=== PATIENT | female | born 1965 | race Two or more races ===

== ENCOUNTER 2023-08-29 10:37 | Outpatient (REF) | payer MEDICAID, SELFPAY ==
[2023-08-29 14:56] LABS: MANUAL DIFF FLAG NO
[2023-08-29 15:03] LABS: Basophils Percent Auto 0.4 % (0-2); Eosinophils Absolute Auto 0.1 X10*3/uL (0.0-0.4); Eosinophils Percent Auto 1.4 % (0-4); Hematocrit 41.2 % (37.0-47.0); Hemoglobin 13.5 g/dl (12.0-16.0); Imm Gran Abs Auto 0.02 X10*3/uL (0.00-0.03); Imm Gran Pct Auto 0.3 % (0.0-0.4); Lymphocytes Percent Auto 28.6 % (20-40); Mean Corpuscular HGB Conc 32.8 g/dl (31.0-35.0); Mean Corpuscular Hemoglobin 30.8 pg (27.0-33.0); Mean Corpuscular Volume 93.8 fL (80.0-98.0); Mean Platelet Volume 10.7 fL (9.4-12.3); Monocytes Absolute Auto 0.5 X10*3/uL (0.1-1.2); Monocytes Percent Auto 7.4 % (2-11); Neutrophils Absolute Auto 4.3 x10*3/uL (2.0-8.3); Neutrophils Percent Auto 61.9 % (45-73); Platelet Count 287 X10*3/uL (160-400); Red Blood Count 4.39 X10*6/uL (4.20-5.50); Red Cell Distribution Width 13.6 % (11.0-16.0); White Blood Count 6.9 X10*3/uL (4.8-10.8)
[2023-08-29 15:27] LABS: Estimated Average Glucose 103 mg/dL; Hemoglobin A1c % 5.2 % (<6.0)
[2023-08-29 15:29] LABS: Alanine Aminotransferase 11 U/L (0-31); Albumin Level 4.4 g/dL (3.5-5.0); Alkaline Phosphatase 77 U/L (39-117); Anion Gap 13 (12-20); Aspartate Amino Transferase 16 U/L (5-31); Bilirubin Total 1.4 mg/dL (0.0-1.0); Blood Urea Nitrogen 11 mg/dL (9-16); Calcium 9.5 mg/dL (8.4-10.2); Carbon Dioxide 22 mmol/L (22-29); Chloride 108 mmol/L (96-108); Cholesterol 208 mg/dL (<200); Estimated Glomerular Filt Rate > 60; Glucose Random 120 mg/dL (60-115); HDL Cholesterol 86 mg/dL (>40); LDL Cholesterol Calculated 109 mg/dL (<100); Potassium 4.3 mmol/L (3.3-5.1); Sodium 139 mmol/L (135-145); Total Protein 6.8 g/dL (6.5-8.0); Triglycerides 67 mg/dL (<150)
[2023-08-29 15:45] LABS: TSH reflex Free T4 0.86 uIU/mL (0.32-4.0); Vitamin D 25-OH Total 28.4 ng/mL (>30)
[2023-08-30 04:55] LABS: ~HepC Num1 0.07 S/CO (0.00-0.79); ~Hepatitis C Antibody Nonreactive (Nonreactive)
[2023-09-02 15:18] LABS: HIV RNA PCR Qn Copies Not Detected Copies/mL; HIV RNA PCR Qn Log Copies Not Detected Log cps/mL
== END 2023-08-29 10:38 | disposition home or self-care (01) ==
LOC: HO.CHCLDS 10:37
PROVIDERS: Visit Provider Internal Medicine
DX: Z12.4 Encounter for screening for malignant neoplasm of cervix (principal); Z11.51 Encounter for screening for human papillomavirus (HPV); F41.9 Anxiety disorder, unspecified; E55.9 Vitamin D deficiency, unspecified
CPT/HCPCS: 36415; 80053; 80061; 82306; 83036; 84443; 85025; 86803; 87536; 87624; 87900; 88142

== ENCOUNTER 2024-01-24 11:05 | Outpatient (REF) | payer MEDICAID, SELFPAY ==
--- NOTE | ~2024-01-24 | MM_ITS ---
EXAMINATION: MM SCREENING DIGITAL BREAST TOMOSYNTHESIS, BILATERAL CLINICAL INFORMATION: Screening. Asymptomatic. The patient has a history of bilateral mastopexy. COMPARISON: Mammography: This study is compared with prior exams dating back to 2019. TECHNIQUE: Digital breast tomosynthesis is performed in both the craniocaudal and mediolateral oblique views along with computer-aided detection (CAD). Synthesized 2D images are generated from the tomosynthesis. FINDINGS: The breasts are almost entirely fatty (ACR BI-RADS breast composition Category a). There are no significant masses, abnormal calcifications, or other abnormalities. Postsurgical changes are present in each breast. MM/MM tomosynthesis screening BI IMPRESSION: No mammographic evidence of malignancy. ASSESSMENT: BI-RADS BI-RADS 2 - Benign Findings RECOMMENDATION: Routine annual mammography screening. 1 year F/U This examination should not preclude the clinical evaluation of a suspicious palpable abnormality. This patient's information was entered into a reminder system with a target due date for their next mammogram.
== END 2024-01-24 11:06 | disposition home or self-care (01) ==
LOC: HO.MAMMO 11:05
PROVIDERS: PCP Internal Medicine; Visit Provider Internal Medicine
DX: Z12.31 Encounter for screening mammogram for malignant neoplasm of breast (principal)
CPT/HCPCS: 77063; 77067

== ENCOUNTER → 2024-01-24 11:15 | Outpatient (BNV) | payer MEDICAID, SELFPAY | PROVIDERS: PCP Internal Medicine; Visit Provider Radiology Diagnostic Radiology | DX: Z12.31 Encounter for screening mammogram for malignant neoplasm of breast (principal) | CPT/HCPCS: 77063; 77067 ==

== ENCOUNTER 2024-02-06 11:35 | Outpatient (REF) | payer MEDICAID, SELFPAY ==
[2024-02-06 15:05] LABS: TSH reflex Free T4 0.39 uIU/mL (0.32-4.0)
== END 2024-02-06 11:36 | disposition home or self-care (01) ==
LOC: HO.CHCLDS 11:35
PROVIDERS: Visit Provider Internal Medicine
DX: Z13.29 Encounter for screening for other suspected endocrine disorder (principal)
CPT/HCPCS: 36415; 84443

== ENCOUNTER 2024-02-06 12:02 | Outpatient (REF) | payer MEDICAID, SELFPAY ==
--- NOTE | ~2024-02-06 | XR_ITS ---
EXAMINATION: XR KNEE, RIGHT CLINICAL INFORMATION: Intermittent lateral knee pain and swelling. COMPARISON: None available. TECHNIQUE: Four views of the right knee. FINDINGS: Moderate joint effusion. Moderate narrowing of the medial compartment with medial marginal osteophytes. Small posterior patellar and lateral marginal osteophytes. Narrowing of the patellofemoral space. XR/XR knee RT 3V IMPRESSION: Moderate degenerative changes.
== END 2024-02-06 12:03 | disposition home or self-care (01) ==
LOC: HO.XRAY 12:02
PROVIDERS: PCP Internal Medicine; Visit Provider Internal Medicine
DX: M25.561 Pain in right knee (principal); G89.29 Other chronic pain; R60.0 Localized edema
CPT/HCPCS: 73562

== ENCOUNTER 2025-03-10 09:23 | Outpatient (REF) | payer MEDICAID, SELFPAY ==
--- OUTSIDE RECORDS SUMMARY | 2025-03-10 09:46 | XMS_ITS | Encounter Summary ---
Author Organization [employer] Address [address] [address] Care Team Providers Care Property Assistant Name Role Phone Medhat Ambrosio MD Primary Care Prov ider Reason for Visit * Reason Onset Date Comments Medication Question 11/22/2024 Encounter Details Date Type Department Care Team ([facility] st Contact Info) Description 11/22/2024 Telephone [facility] MEDICINE [address] [place] [address] Medhat Ambrosio MD [address] [place] [address] Medication Question Social History Tobacco Use Types Packs/Day Years Used Date Smoking Tobacco: Never Smokeless Tobacco: Never Alcohol Use Standard Drinks/Week Comments Not Currently 0 (1 standard drink = 0.6 oz pur e alcohol) Depression Answer Date Recorded Patient Health Questionnaire-9 Score 3 07/26/2023 Patient Health Questionnaire-9 Score 3 07/26/2023 Last PHQ-9: Questionnaire Data Not on file 1 09/25/2022 Housing Stability Answer Date Recorded What is your housing situation today? I do not have housing (Staying with others, in a hotel, in a snf, living outside on the street, on a beach, in a car, or in a park 08/01/[address] you li ve. Do you have problems with any of the following? None of the above 08/01/2024 Food Insecurity Answer Date Recorded Within the past 12 months, y ou worried that your food would run out before you got money to buy more: Sometimes True 2023 Within the past 12 months,th e food you bought just didn't last and you didn't have enough money to get more: Sometimes True 08/01/2024 Transportation Answer Date Recorded In the past 12 months, has l ack of transportation kept you from medical appts, meetings, work or from getting things needed for daily living? Yes, it has kept me from medical appointments or getting medications. 08/01/2024 Utilities Answer Date Recorded In the past 12 months, has t he electric, gas, oil or water company threatened to shut off services in your home? No 08/01/2024 Depression Answer Date Recorded Patient Health Questionnaire-2 Score 2 07/26/2023 Internet Access Answer Date Recorded Internet Access Q1 Yes 08/01/2024 Internet Access Q2 Not on file 08/01/2024 Comments No Sex and Gender Information Value Date Recorded Sex Assigned at Female 07/10/2023 8:41 AM EST Legal Sex Female 8:41 AM EST Gender Identity Female 07/10/2023 8:41 AM EST Sexual Orientation Straight 07/26/2023 10 :54 AM EST documented as of this encounter Miscellaneous Notes * Telephone Encounter - Cas Ocasio - 11/22/2024 1:24 PM EDT Tc from pt requesting to see if its possible to get some medication prescribed for her due to her having ring worm. Contact pt at [phone] documented in this encounter Plan of Treatment Upcoming Encounters Date Type Department Care Team (Late st Contact Info) Description 04/10/2025 11:30 AM EDT Telemedicine [facility] CHC MED & PEDS [address] [place] [address] Medhat Ambrosio MD [address] [place] [address] documented as of this encounter Visit Diagnoses Not on filedocumented in this encounter Additional Health Concerns Assessment Noted Time PHQ-9 Depression Total Score: 3 07/26/20 23 11:35 AM EST documented as of this encounter Care Teams Property Assistant Relationship Specialty Start Date End Date Medhat Ambrosio MD [address] [place] [id number] PCP - General Internal Medicine 07/26/23 documented as of this encounter
[2025-03-10 15:11] LABS: MANUAL DIFF FLAG NO
[2025-03-10 15:44] LABS: Hemoglobin A1C 133.0846 umol/L; Total Hemoglobin (HGBA1C) 3743.7097 umol/L
[2025-03-10 15:45] LABS: Hematocrit 43.1 % (37.0-47.0); Hemoglobin 14.4 g/dl (12.0-16.0); Imm Gran Abs Auto 0.02 X10*3/uL (0.00-0.03); Imm Gran Pct Auto 0.3 % (0.0-0.4); Lymphocytes Absolute Auto 1.7 X10*3/uL (1.2-4.9); Mean Corpuscular HGB Conc 33.4 g/dl (31.0-35.0); Mean Corpuscular Hemoglobin 30.4 pg (27.0-33.0); Mean Corpuscular Volume 91.1 fL (80.0-98.0); NRBC Abs Auto 0.000 X10*3/uL (0.0-0.012); NRBC Pct Auto 0.0 /100WBC (0.0-0.2); Platelet Count 294 X10*3/uL (160-400); Red Blood Count 4.73 X10*6/uL (4.20-5.50); White Blood Count 7.2 X10*3/uL (4.8-10.8)
[2025-03-10 16:04] LABS: Alanine Aminotransferase 15 U/L (0-31); Albumin Level 4.7 g/dL (3.5-5.0); Alkaline Phosphatase 72 U/L (39-117); Anion Gap 11 (12-20); Aspartate Amino Transferase 22 U/L (5-31); Blood Urea Nitrogen 12 mg/dL (9-16); Calcium 9.6 mg/dL (8.4-10.2); Carbon Dioxide 26 mmol/L (22-29); Chloride 105 mmol/L (96-108); Cholesterol 204 mg/dL (<200); Estimated Glomerular Filt Rate > 60; HDL Cholesterol 80 mg/dL (>40); Potassium 4.7 mmol/L (3.3-5.1); Sodium 137 mmol/L (135-145); Total Protein 6.9 g/dL (6.5-8.0); Triglycerides 100 mg/dL (<150)
== END 2025-03-10 09:24 | disposition home or self-care (01) ==
LOC: HO.CHCLDS 09:23
PROVIDERS: Visit Provider Internal Medicine
DX: E66.811 Obesity, class 1 (principal); Z68.30 Body mass index [BMI] 30.0-30.9, adult
CPT/HCPCS: 36415; 80053; 80061; 83036; 84443; 85025

== ENCOUNTER 2025-05-15 12:22 | Outpatient (REF) | payer MEDICAID, SELFPAY ==
--- OUTSIDE RECORDS SUMMARY | 2025-05-15 14:33 | XMS_ITS | Encounter Summary ---
Author Organization [employer] Address [address] [place] [id number] Care Team Providers Care Ultimate Hoops Referee Name Role Phone Medhat Ambrosio MD Primary Care Prov ider Reason for Visit * Reason Comments Med Refill Encounter Details Date Type Department Care Team ([facility] st Contact Info) Description 03/16/2025 Refill [facility] CHC MED & PEDS [address] [place] [address] Medhat Ambrosio MD [address] [place] [address] Social History Tobacco Use Types Packs/Day Years Used Date Smoking Tobacco: Never Smokeless Tobacco: Never Alcohol Use Standard Drinks/Week Comments Not Currently 0 (1 standard drink = 0.6 oz pur e alcohol) Alcohol Answer Date Recorded How often do you have a drink containing alcohol ? 1 03/10/2025 How many drinks containing a lcohol do you have on a typical day when you are drinking? 0 03/10/2025 How often do you have six or more drinks on one occasion? 0 03/10/2025 Depression Answer Date Recorded Patient Health Questionnaire-9 Score 4 03/10/2025 Patient Health Questionnaire-9 Score 4 03/10/2025 Last PHQ-9: Questionnaire Data Not on file 0 03/10/2025 Housing Stability Answer Date Recorded What is your housing situation today? I do not have housing (Staying with others, in a hotel, in a longterm, living outside on the street, on a beach, in a car, or in a park 03/10/[address] you li ve. Do you have problems with any of the following? None of the above 03/10/2025 Food Insecurity Answer Date Recorded Within the past 12 months, y ou worried that your food would run out before you got money to buy more: Never True 03/03/2025 Within the past 12 months,th e food you bought just didn't last and you didn't have enough money to get more: Never True 02/2025 Transportation Answer Date Recorded In the past 12 months, has l ack of transportation kept you from medical appts, meetings, work or from getting things needed for daily living? No 03/03/2025 Utilities Answer Date Recorded In the past 12 months, has t he electric, gas, oil or water company threatened to shut off services in your home? No 08/01/2024 Depression Answer Date Recorded Patient Health Questionnaire-2 Score 2 03/10/2025 Internet Access Answer Date Recorded Internet Access Q1 Yes 08/01/2024 Internet Access Q2 Not on file 08/01/2024 Comments No Sex and Gender Information Value Date Recorded Sex Assigned at Female 07/10/2023 8:41 AM EST Legal Sex Female 8:41 AM EST Gender Identity Female 07/10/2023 8:41 AM EST Sexual Orientation Straight 07/26/2023 10 :54 AM EST documented as of this encounter Plan of Treatment Not on file documented as of this encounter Visit Diagnoses Not on filedocumented in this encounter Additional Health Concerns Assessment Noted Time PHQ-9 Depression Total Score: 4 03/10/20 25 9:04 AM EDT documented as of this encounter Care Teams Ultimate Hoops Referee Relationship Specialty Start Date End Date Medhat Ambrosio MD [address] [place] [id number] PCP - General Internal Medicine 07/26/23 documented as of this encounter
--- OUTSIDE RECORDS SUMMARY | 2025-05-15 14:33 | XMS_ITS | Encounter Summary ---
Author Organization [employer] Address [address] [place] [address] Care Team Providers Care Lead Slot Technician Name Role Phone Medhat Ambrosio MD Primary Care Prov ider Reason for Visit * Reason Comments Med Refill Encounter Details Date Type Department Care Team ([facility] Contact Info) Description 07/06/2024 Refill C [facility] MED & PEDS [address] [place] [address] Medhat Ambrosio MD [address] [place] [address] Social History Tobacco Use Types Packs/Day Years [...] What is your housing situation today? I have kamilla quarles 07/26/[address] you li ve. Do you have problems with any of the following? None of the above 07/26/2023 Food Insecurity Answer Date Recorded Within the past 12 months, y ou worried that your food would run out before you got money to buy more: Never True 07/26/2023 Within the past 12 months,th e food you bought just didn't last and you didn't have enough money to get more: Never True Transportation Answer Date Recorded In the past 12 months, has l ack of transportation kept you from medical appts, meetings, work or from getting things needed for daily living? No 07/26/2023 Utilities Answer Date Recorded In the past 12 months, has t he electric, gas, oil or water company threatened to shut off services in your home? No 07/26/2023 Depression Answer Date Recorded Patient Health Questionnaire-2 Score 2 07/26/2023 Comments No Sex and Gender Information Value [...] Time PHQ-9 Depression Total Score: 3 07/26/20 11:35 AM EST documented as of this encounter Care Teams Lead Slot Technician Relationship Specialty Start Date End Date Medhat Ambrosio MD [address] [place] [id number] PCP - General Internal Medicine 07/26/23 documented as of this encounter
--- OUTSIDE RECORDS SUMMARY | 2025-05-15 14:33 | XMS_ITS | Encounter Summary ---
Author Organization [employer] Address [address] [place] [address] Care Team Providers Care Winding Operator Name Role Phone Medhat Ambrosio MD Primary Care Prov ider Encounter Details Date Type Department Care Team (Latest Contact Info) Description 03/10/2025 Results Follow-Up [facility] CHC MED & PEDS [address] [place] [address] Medhat Ambrosio MD [address] [place] [address] CBC auto differential, Comprehensive Metabolic Panel, Lipid Panel, Standard, Additional followed-up results: 2 Social History Tobacco Use Types Packs/Day Years [...] with others, in a hotel, in a custodial, living outside on the street, on a [...] AM EST documented as of this encounter Functional Status * Over the past 2 weeks, how often have you been bothered by any of the following problems? Question Answer Date of Assessment Author Patient Health Questionnaire-2 Score 2 02/25 9:04 AM Louisa Navas MA * Little interest or pleasure in doing things Answer Date of Assessment Author Several days 03/10/2025 9:04 AM Erwin Navas MA * Feeling down, depressed, or hopeless Answer Date of Assessment Author Several days 03/10/2025 9:04 AM Erwin Navas MA * Trouble falling or staying asleep, or sleeping too much Answer Date of Assessment Author Not at all 03/10/2025 9:04 AM Erwin Navas MA * Feeling tired or having little energy Answer Date of Assessment Author Several days 03/10/2025 9:04 AM EDT Erwin Abraham MA * Poor appetite or overeating Answer Date of Assessment Author Not at all 03/10/2025 9:04 AM LOCT Erwin Abraham MA * Feeling bad about yourself - or that you are a failure or have let yourself or your family down Answer Date of Assessment Author Not at all 03/10/2025 9:04 AM EDT Erwin Abraham MA * Trouble concentrating on things, such as reading the newspaper or watching television Answer Date of Assessment Author Not at all 03/10/2025 9:04 AM EDT Erwin Abraham MA * Moving or speaking so slowly that other people could have noticed? Or the opposite - being so fidgety or restless that you have been moving around a lot more than usual. Answer Date of Assessment Author Several days 03/10/2025 9:04 AM EDT Erwin Abraham MA * Thoughts that you would be better off or hurting yourself in some way Answer Date of Assessment Author Not at all 03/10/2025 9:04 AM EDT Erwin Abraham MA * Patient Health Questionnaire-9 Score Answer Date of Assessment Author 4 03/10/2025 9:04 AM LOCT Erwin Abraham MA * How difficult have these problems made it for you to do your work, take care of things at home, or get along with other people? Answer Date of Assessment Author Not difficult at all 03/10/2025 9:04 AM EDT Louisa Pineda MA documented as of this encounter Plan of Treatment Not on file documented as of this encounter Visit Diagnoses Not on filedocumented in this encounter Additional Health Concerns Assessment Noted Time PHQ-9 Depression Total Score: 4 03/10/20 25 9:04 AM EDT documented as of this encounter Care Teams Winding Operator Relationship Specialty Start Date End Date Medhat Ambrosio MD [address] [place] [address] ELVIRA Zafar [id number] PCP - General Internal Medicine 07/26/23 documented as of this encounter
--- OUTSIDE RECORDS SUMMARY | 2025-05-15 14:33 | XMS_ITS | Encounter Summary ---
Author Organization [employer] Address [address] [address] Care Team Providers Care Deck Engine Operator Name Role Phone Medhat Ambrosio MD Primary Care Prov ider Reason for Visit * Reason Onset Date Comments PT1 12/05/2024 Encounter Details Date Type Department Care Team ([facility] st Contact Info) Description 12/05/2024 Telephone [facility] MEDICINE [address] [place] [address] Medhat Ambrosio MD [address] [place] [address] PT1 Social History Tobacco Use Types Packs/Day Years [...] with others, in a hotel, in a assisted, living outside on the street, on a [...] encounter Miscellaneous Notes * Telephone Encounter - Sona Walters - 12/05/2024 1:08 PM EDT Patient calling requesting PT1 Appt- Home Address verified: Y/N: Yes Provider name or facility name: [facility] [address] [place] [address] Escort needed: Y/N: No Do you have a wheelchair: Y/N: No If yes- Manual or electric: N/A Visits: (3x monthly) Patient calling requesting PT1 Home Address verified: Y/N: Yes Provider name or facility name: [address] [address] Escort needed: Y/N: No Do you have a wheelchair: Y/N: No If yes- Manual or electric: N/A Visits: (3x monthly) documented in this encounter Plan of Treatment Not on file documented as of this encounter Visit Diagnoses Not on filedocumented in this encounter Additional Health Concerns Assessment Noted Time PHQ-9 Depression Total Score: 3 07/26/20 11:35 AM EST documented as of this encounter Care Teams Deck Engine Operator Relationship Specialty Start Date End Date Medhat Ambrosio MD [address] [place] [id number] PCP - General Internal Medicine 07/26/23 documented as of this encounter
--- OUTSIDE RECORDS SUMMARY | 2025-05-15 14:33 | XMS_ITS | Encounter Summary ---
Author Organization [employer] Address [address] [address] Care Team Providers Care Miller Kiln Dried Salt Name Role Phone Medhat Ambrosio MD Primary Care Prov ider Reason for Visit * Reason Onset Date Comments Appointment Request 11/22/2024 Encounter Details Date Type Department Care Team ([facility] st Contact Info) Description 11/22/2024 Telephone [facility] MEDICINE [address] [place] [address] Medhat Ambrosio MD [address] [place] [address] Appointment Request Social History Tobacco Use Types Packs/Day Years [...] with others, in a hotel, in a fci, living outside on the street, on a [...] Telephone Encounter - Cas Ocasio - 11/22/2024 1:27 PM EDT Tc from pt requesting to schedule appt with PCP. Pt states talked to a Triage nurse earlier in the day but they advised her to come to the walk in. Pt dosent have any transportation the only way pt is able to get some is if she has a appt. Contact pt at [phone] documented in this encounter Plan of Treatment Not on file documented as of this encounter Visit Diagnoses Not on filedocumented in this encounter Additional Health Concerns Assessment Noted Time PHQ-9 Depression Total Score: 3 07/26/20 23 11:35 AM EST documented as of this encounter Care Teams Miller Kiln Dried Salt Relationship Specialty Start Date End Date Medhat Ambrosio MD [address] [place] [address] PCP - General Internal Medicine 07/26/23 documented as of this encounter
--- OUTSIDE RECORDS SUMMARY | 2025-05-15 14:33 | XMS_ITS | Clinical Summary ---
Author Organization [employer] Address [address] [place] [address] [address] [place] [address] Care Team Providers Care Interactive Developer Name Role Phone Medhat Ambrosio MD Primary Care Prov ider Allergies Active Allergy Reactions Criticality Noted Date Comments Kiwi Extract Hives 07/26/2023 Medications prednisoLONE acetate (Pred-Forte) 1 % ophthalmic suspension Administer 1 drop into both eyes 4 times daily. Active traZODone (Desyrel) 50 MG tablet Take 50 mg by mouth at bedtime. Active ARIPiprazole (Abilify) 2 MG tablet Take 2 mg by mouth Once per day. Active Diclofenac Sodium 1 % gel Apply 4 g topically if needed in the morning, at noon, in the evening, and at bedtime (pain). 100 g 3 4 Active acetaminophen (Tylenol) 500 MG tablet Take 1 tablet (500 mg) by mouth every 6 (six) hours if needed for mild pain for up to 20 doses. 20 tablet 4 Active ibuprofen 600 MG tablet Take 1 tablet (600 mg) by mouth every 6 (six) hours if needed for mild pain for up to 20 doses. 20 tablet 4 Active Vitamin D, Ergocalciferol, 93017 units capsule Take 1 capsule (50,000 Units) by mouth 1 (one) time per week. 12 capsule 3 4 07/08/20 25 Active Blood Pressure kit 1 kit Once per day. 1 kit 5 Active moxifloxacin (Vigamox) 0.5 % ophthalmic solution INSTILL 1 DROP IN LEFT EYE THREE TIMES DAILY 5 Active dorzolamide-ayanna olol (Cosopt) 2-0.5 % ophthalmic solution instill 1 drop in left eye twice daily 5 Active dexAMETHasone (Decadron) 4 MG tablet Take 1 tablet by mouth 2 times daily. 5 Active busPIRone (Buspar) 30 MG tablet Take 1 tablet by mouth 2 times daily. 5 Active Simbrinza 1-0.2 % suspension SHAKE LIQUID AND INSTILL 1 DROP IN LEFT EYE TWICE DAILY 5 Active atropine 1 % ophthalmic solution instill 1 drop in left eye twice daily 5 Active chlorhexidine (Peridex) 0.12 % solution 5 Active amLODIPine (Norvasc) 2.5 MG tabletIndicatio ns:Elevated blood pressure reading Take 1 tablet (2.5 mg) by mouth Once per day. 30 tablet 2 5 06/18/20 25 Active Active Problems Problem Noted Date Diagnosed Date Elevated blood pressure reading 03/10/2025 Assessment & Plan (03/25/2025 2:32 PM EDT): Start Amlodipine 2.5mg daily Continue to work on stress reduction and anxiety reduction Commended her on her excellent dietary and exercise habits She will continue to monitor her BP and check in with nurse visit in two weeks Assessment & Plan (03/10/2025 9:43 AM EDT): Will order blood pressure kit, told to keep a low sodium diet and exercise as tolerated, keep bp log, follow up in 1 month Dental abscess 05/17/2024 Vitamin D deficiency 08/10/2023 Assessment & Plan (08/10/2023 12:15 PM EST): Will renew vitamin d oral replacement Bilateral retinal detachment 07/26/2023 Assessment & Plan (04/30/2025 11:24 AM EDT): Will place referral to eye and lasik for eye care Assessment & Plan (01/25/2024 3:51 PM EDT): Followed by ophthalmology, on Combigan and prednisone Assessment & Plan (07/26/2023 2:08 PM EST): Patient with hx of bilateral retinal detachement which started on 2018, she refers on her left eye she has had 9 procedures, pending eye reevaluation, will place referal Screening for malignant neoplasm of colon 2022 Assessment & Plan (07/26/2023 2:11 PM EST): Will send cologuard Screening for cervical cancer 07/26/2023 Assessment & Plan (07/26/2023 2:12 PM EST): Will refer for pap smear, Encounter for screening mamm ogram for malignant neoplasm of breast 07/26/2023 Assessment & Plan (07/26/2023 2:13 PM EST): Will order breast cancer screening Anxiety 07/26/2023 Assessment & Plan (03/10/2025 9:45 AM EDT): Followed by psych, no suicidal/homicidal ideas, on abilify and buspirone Assessment & Plan (01/25/2024 3:48 PM EDT): Followed by psych on trazodone 50mg, abilify 2mg, no suicidal/homicidal ideas Assessment & Plan (08/10/2023 12:16 PM EST): Controlled, on propanolol, followed by therapist, pending psych follow up, no suicidal/homicidal ideas Assessment & Plan (07/26/2023 2:15 PM EST): Chronic, no suicidal/homicidal ideas, on propanolol, which she tolerates and control her symptoms, continue same treatment Encounters Date Type Department Care Team Description 04/21/2025 11:15 AM EDT Telemedicine [facility] [address] [place] [address] Medhat Ambrosio MD Eye exam abnormal (Primary Dx); Bilateral retinal detachment 04/18/2025 Telephone [facility] [address] [place] [address] Medhat Ambrosio MD chart prep 04/16/2025 Travel 04/15/2025 Telephone [facility] [address] [place] [address] Medhat Ambrosio MD Referral 04/14/2025 9:30 AM EDT Clinical Support [facility] [address] [place] [address] Betty Shi RN Elevated blood pressure reading 04/14/2025 Travel 04/10/2025 Telephone [facility] [address] [place] [address] Medhat Ambrosio MD 04/07/2025 Travel 04/05/2025 Travel 04/02/2025 Patient Outreach [facility] [address] [place] [phone] Medhat Ambrosio MD Care Coordination (CHW outreach for SDOH PT-1 and food needs-referral completed /) 04/02/2025 Telephone [facility] [address] [place] [phone] Medhat Ambrosio MD PT-1 03/27/[address] [address] Medhat Ambrosio MD Nurse Triage 03/20/2025 11:15 AM EDT Office Visit [facility] [address] [place] [address] Jannet Fam MD Elevated blood pressure reading (Primary Dx) 03/20/2025 Travel 03/19/2025 Travel 03/19/2025 Telephone [facility] [address] [place] [address] Medhat Ambrosio MD Nurse Triage 03/17/2025 Telephone [facility] [address] [place] [address] Medhat Ambrosio MD Referral 03/16/2025 Refill [facility] [address] [place] [address] Medhat Ambrosio MD 03/10/2025 9:00 AM EDT Office Visit [facility] [address] [place] [address] Medhat Ambrosio MD Class 1 obesity due to excess calories without serious comorbidity with body mass index (BMI) of 30.0 to 30.9 in adult (Primary Dx); Encounter for screening mammogram for malignant neoplasm of breast; Dietary counseling; Exercise counseling; Elevated blood pressure reading; Anxiety 03/10/2025 Results Follow-Up [facility] [address] [place] [address] Medhat Ambrosio MD CBC auto differential, Comprehensive Metabolic Panel, Lipid Panel, Standard, Additional followed-up results: 2 03/10/2025 Travel 03/06/2025 Patient Outreach [facility] [address] [place] [phone] Medhat Ambrosio MD Care Coordination (CHW outreach for SDOH PT-1 and food needs-referral completed /) 03/06/2025 Telephone [facility] [address] [place] [phone] Medhat Ambrosio MD PT-1 03/03/2025 Patient Outreach [facility] [address] [place] [phone] Medhat Ambrosio MD Pre-visit Planning (SDOH screening negative and Tobacco screening negative) 03/03/2025 Travel from Last 3 Months Immunizations Immunization Administration Dates Next Due Influenza injectable quadrivalent preservative f ree 08/10/2023 Influenza, seasonal, injectable, preservative fr ee 07/10/2024 Family History Medical History Relation Name Comments No Known Problems Father Cancer Father's Brother GI Stroke Maternal Cousin Hypertension Maternal Grandmother Kimberli Hermosillo Lymphoma Maternal Grandmother Kimberli Hermosillo Diabetes Mother Zeina Frederick Hypertension Mother Zeina Frederick Thyroid disease Mother Zeina Frederick Stroke Mother's Sister Factor II de ficiency Stroke Paternal Grandmother Thyroid disease Sister Cancer Son Davy Valdez Syndro me Relation Name Status Comments Father Father's Brother Maternal Cousin Other Maternal Grandmother Kimberli Hermosillo Mother Zeina Frederick Mother's Sister Paternal Grandmother Sister Son Davy Apodaca Social History Tobacco Use Types Packs/Day Years Used Date Smoking Tobacco: Never Passive Smoke Exposure: Never Smokeless Tobacco: Never Tobacco Cessation:Counseling Given: Not Answered Alcohol Use Standard Drinks/Week Comments Not Currently [...] with others, in a hotel, in a chcf, living outside on the street, on a [...] Orientation Straight 07/26/2023 10 :54 AM EST Last Filed Vital Signs Vital Sign Reading Time Taken Comments Blood Pressure 120/72 04/14/2025 9:46 AM EDT Pulse 72 04/14/2025 9:45 AM EDT Temperature 36.9 C (98.4 F) 03/20/2025 11:05 AM EDT Respiratory Rate 20 03/20/2025 11:05 AM EDT Oxygen Saturation 93% 03/10/2025 8:52 AM EDT Inhaled Oxygen Concentration - - Weight 83.6 kg (184 lb 6.4 oz) 04/14/2025 9:45 A M EDT Height 167.6 cm (5' 6 ) 03/10/2025 8:52 AM EDT Body Mass Index 29.76 03/10/2025 8:52 AM EDT Plan of Treatment Health Maintenance Due Date Last Done Comments CT Colonography 1965 Colonoscopy 1965 Dental Oral Exam 1965 Dental Prophylaxis 1965 Dental X-Ray: Bitewings 1965 FIT 1965 Sigmoidoscopy 1965 DTaP/Tdap/Td Vaccines (1 - Tdap) 1983 Pneumococcal Vaccine: 50+ Years (1 of 1 - PCV) 2014 Zoster Vaccines (1 of 2) 2014 FOBT 08/05/2024 08/05/2023 COVID-19 Vaccine (1 - 2023-2 5 season) 2025 Influenza Vaccine (#1) 2025 , 08/10/2023 Mammogram 01/23/2026 01/24/2024 Disability Screening 03/03/2026 03/03/2025 SDOH Screening 03/03/2026 03/03/2025 Alcohol/Substance Use Screening 03/10/2026 03/10/2025 Depression Screening 03/10/2026 03/10/2025, 03/10/2025 Tobacco Screening 03/25/2026 03/25/2025 Colorectal Cancer Screening 08/05/2026 FIT DNA/Cologuard 08/05/2026 08/05/2023 Cervical Cancer Screening 08/29/2026 HPV/Cotest 08/29/2026 08/29/2023 Pap Smear 08/29/2026 08/29/2023 Dental X-Ray: Full Mouth 05/18/2027 05/17/2024 Lipid Panel 03/10/2030 03/10/2025, 08/29/2023 HIV Screening 08/31/2033 RSV Patients and Patients Aged 60 years or older (1 - 1-dose 75+ series) 2039 Hepatitis C Screening Completed 08/29/2023 HIB Vaccines Aged Out No longer eligi ble based on patient's age to complete this topic HPV Vaccines Aged Out No longer eligi ble based on patient's age to complete this topic Hepatitis A Vaccines Aged Out No long er eligible based on patient's age to complete this topic Hepatitis B Vaccines Aged Out No long er eligible based on patient's age to complete this topic IPV Vaccines Aged Out No longer eligi ble based on patient's age to complete this topic Meningococcal B Vaccine Aged Out No l onger eligible based on patient's age to complete this topic Meningococcal Vaccine Aged Out No cruz anuj eligible based on patient's age to complete this topic RSV under 20 months Aged Out No longe r eligible based on patient's age to complete this topic Rotavirus Vaccines Aged Out No longer eligible based on patient's age to complete this topic Procedures Procedure Name Priority Date/Time Associated Diagnosis Comments TSH W/REFLEX TO FT4 Routine 03/10/2025 9 :25 AM EDT Class 1 obesity due to excess calories without serious comorbidity with body mass index (BMI) of 30.0 to 30.9 in adult HEMOGLOBIN A1C Routine 03/10/2025 9:25 AM EDT Class 1 obesity due to excess calories without serious comorbidity with body mass index (BMI) of 30.0 to 30.9 in adult LIPID PANEL, STANDARD Routine 03/10/2025 9:25 AM EDT Class 1 obesity due to excess calories without serious comorbidity with body mass index (BMI) of 30.0 to 30.9 in adult COMPREHENSIVE METABOLIC PANEL Routine 03/10/2025 9:25 AM EDT Class 1 obesity due to excess calories without serious comorbidity with body mass index (BMI) of 30.0 to 30.9 in adult CBC WITH AUTO DIFFERENTIAL Routine 03/10/2025 9:25 AM EDT Class 1 obesity due to excess calories without serious comorbidity with body mass index (BMI) of 30.0 to 30.9 in adult PANORAMIC RADIOGRAPHIC IMAGE Routine 05/17/2024 11:30 AM EDT BI MAMMOGRAM SCREENING TOMOSYNTHESIS BILATERAL Routine 01/24/2024 11:25 AM EDT HEPATITIS C AB W/REFL TO HCV RNA, QN, PCR Routine 08/29/2023 10:44 AM EST Anxiety HPV MRNA E6/E7 REFLEX TO HPV 16, 18/45 Routine 08/29/2023 10:17 AM EST PAP SMEAR Routine 08/29/2023 10:17 AM EST Cervical cancer screening LAB COLOGUARD COLON CANCER SCREEN Routine 08/05/2023 6:52 AM EST Screening for malignant neoplasm of colon from Last 3 Months or Most Recently Relevant to Health Maintenance Results * TSH W/Reflex to FT4 (03/10/2025 9:25 AM EDT) TSH reflex Free T4 0.68 0.32 - 4.0 uIU/mL [facility] Blood Venous blood specimen / Unknown 03/10/2025 9:25 AM EDT 03/10/2025 3:28 PM EDT us Medhat Mcgowan MD LAB BLOOD ORDERABL ES Final Result [facility] [address] [place] [address] [phone] * CBC auto differential (03/10/2025 9:25 AM EDT) White Blood Count 7.2 4.8 - 10.8 X10*3/uL [facility] Red Blood Count 4.73 4.20 - 5.50 X10*6/uL [facility] Hemoglobin 14.4 12.0 - 16.0 g/dl [facility] Hematocrit 43.1 37.0 - 47.0 % [facility] Mean Corpuscular Volume 91.1 80.0 - 98.0 fL [facility] Mean Corpuscular Hemoglobin 30.4 27.0 - 33.0 pg [facility] Mean Corpuscular HGB Conc 33.4 31.0 - 35.0 g/dl [facility] Red Cell Distribution Width 13.2 11.0 - 16.0 % [facility] Platelet Count 294 160 - 400 X10*3/uL [facility] Mean Platelet Volume 10.2 9.4 - 12.3 fL [facility] Neutrophils Percent Auto 67.6 45 - 73 % [facility] Imm Gran Pct Auto 0.3 0.0 - 0.4 % [facility] Lymphocytes Percent Auto 23.8 20 - 40 % [facility] Monocytes Percent Auto 7.1 2 - 11 % [facility] Eosinophils Percent Auto 0.8 0 - 4 % [facility] Basophils Percent Auto 0.4 0 - 2 % [facility] NRBC Pct Auto 0.0 0.0 - 0.2 /100WBC [facility] Neutrophils Absolute Auto 4.9 2.0 - 8.3 x10*3/uL [facility] Imm Gran Abs Auto 0.02 0.00 - 0.03 X10*3/uL [facility] Lymphocytes Absolute Auto 1.7 1.2 - 4.9 X10*3/uL [facility] Monocytes Absolute Auto 0.5 0.1 - 1.2 X10*3/uL [facility] Eosinophils Absolute Auto 0.1 0.0 - 0.4 X10*3/uL [facility] Basophils Absolute Auto 0.0 0.0 - 0.2 X10*3/uL [facility] NRBC Abs Auto 0.000 0.0 - 0.012 X10*3/uL [facility] Blood Venous blood specimen / Unknown 03/10/2025 9:25 AM EDT 03/10/2025 3:09 PM EDT Medhat Mcgowan MD LAB BLOOD ORDERABL ES Final Result Performing Organization Address [facility]/ZIP Co de Phone Number [facility] [address] [place] [phone] * Hemoglobin A1c (03/10/2025 9:25 AM EDT) Hemoglobin A1c 5.4 <6.0 % [facility] Comment:Hemoglobin A1C Refer ence Range Adults: 4.8 - 6.0 % Non diabetic: < 6.0 % Goal: < 7.0 %Additional Action Suggested: > 8.0 %Note: Hemoglobin A1c results are invalid for patients with abnormal amounts of HbF. Blood transfusions may impact the HbA1c concentration in the patient sample. Estimated Average Glucose 108 mg/dL [facility] Comment:eAG = Estimated ave rage glucose which is %A1C expressed asaverage glucose, using the formula of the S4S-AburlfpFeseman Glucose study (ADAG), Diabetes Care, Vol.31,#8,Mar. 2007 Blood Venous blood specimen / Unknown 03/10/2025 9:25 AM EDT 03/10/2025 3:20 PM EDT Medhat Mcgowan MD LAB BLOOD ORDERABL ES Final Result Performing Organization Address City/[facility]/ZIP Co de Phone Number [facility] [address] [place] [phone] * (ABNORMAL) Lipid Panel, Standard (03/10/2025 9:25 AM EDT) Triglycerides 100 <150 mg/dL [facility] Comment:Desirable Triglyceri de: less than 150 mg/dLBorderline High Triglyceride 150-199 mg/dLHigh Triglyceride: 200-499 mg/dLVery High Triglyceride: greater than or equal to 5OO mg/dL Cholesterol 204(H) <200 mg/dL [facility] Comment:Desirable Cholestero l: less than 200 mg/dLBorderline High Cholesterol: 200-239 mg/dLHigh Cholesterol: greater than 239 mg/dL LDL Cholesterol Calculated 104(H) <100 mg/dL [facility] Comment:Desirable LDL: less than 100 mg/dLNear Optimal/Above Optimal LDL: 110- 129 mg/dLBorderline High LDL: 130-159 mg/dLHigh LDL: 160-189 mg/dLVery High LDL: greater than or equal to 190 mg/dL HDL Cholesterol 80 >40 mg/dL [facility] Comment:Desirable HDL: great er than 40 mg/dL Note: This HDL assay may give artificially low results in patients with liver disease. Blood Venous blood specimen / Unknown 03/10/2025 9:25 AM EDT 03/10/2025 3:28 PM EDT us Medhat Mcgowan MD LAB BLOOD ORDERABL ES Final Result [facility] [address] [place] [phone] * (ABNORMAL) Comprehensive Metabolic Panel (03/10/2025 9:25 AM EDT) Sodium 137 135 - 145 mmol/L [facility] Potassium 4.7 3.3 - 5.1 mmol/L [facility] Chloride 105 96 - 108 mmol/L [facility] Carbon Dioxide 26 22 - 29 mmol/L [facility] Anion Gap 11(L) 12 - 20 [facility] Urea Nitrogen (BUN) 12 9 - 16 mg/dL [facility] Creatinine, Serum 0.84 0.5 - 1.4 mg/dL [facility] Estimated Glomerular Filt Rate >60 [facility] Comment:Chronic Kidney Disea se: Estimated GFR < 60 mL/min/[id number] Kidney Disease: Estimated GFR < 15 mL/min/1.73m2 Glucose 104 60 - 115 mg/dL [facility] Calcium 9.6 8.4 - 10.2 mg/dL [facility] Bilirubin, Total 1.7(H) 0.0 - 1.0 mg/dL [facility] Aspartate Amino Transferase 22 5 - 31 U/L [facility] Alanine Aminotransferase 15 0 - 31 U/L [facility] Total Protein 6.9 6.5 - 8.0 g/dL [facility] Albumin Level 4.7 3.5 - 5.0 g/dL [facility] Alkaline Phosphatase 72 39 - 117 U/L [facility] Blood Venous blood specimen / Unknown 03/10/2025 9:25 AM EDT 03/10/2025 3:28 PM EDT Medhat Mcgowan MD LAB BLOOD ORDERABL ES Final Result Performing Organization Address City/State/[facility] Co de Phone Number [facility] [address] [place] [phone] * BI Mammogram Screening Tomosynthesis Bilateral (01/24/2024 11:25 AM EDT) Anatomical Region Laterality Modality Breast Bilateral Mammography 01/24/2024 11:2 5 AM EDT Narrative 02/19/2024 12:58 PM EDT [facility] [address] [place] [address] Mammography Report Signed Patient: Celeste Frederick MR#: [id number] : 1965 Acct:[id number] Age/Sex: 58 / F ADM Date: 01/24/24 Loc: HO.MAMMO Attending Dr: Medhat Mcgowan MD Ordering Physician: Medhat Ambrosio MD Res ults: 2Benign Findings Date of Service: 01/24/24 Follow Up: 1 Year From Orig inal Mammogram Procedure(s): MM tomosynthesis screening BI Accession Number(s): [id number] cc: Medhat Ambrosio MD EXAMINATION: MM SCREENING DIGITAL BREAST TOMOSYNTHESIS, BILATERAL CLINICAL INFORMATION: Screening. Asymptomatic. The patient has a history of bilateral mastopexy. COMPARISON: Mammography: This study is compared with prior exams dating back to 2019. TECHNIQUE: Digital breast tomosynthesis is performed in both the craniocaudal and mediolateral oblique views along with computer-aided detection (CAD). Synthesized 2D images are generated from the tomosynthesis. FINDINGS: The breasts are almost entirely fatty (ACR BI-RADS breast composition Category a). There are no significant masses, abnormal calcifications, or other abnormalities. Postsurgical changes are present in each breast. MM/MM tomosynthesis screening BI IMPRESSION: No mammographic evidence of malignancy. ASSESSMENT: BI-RADS BI-RADS 2 - Benign Findings RECOMMENDATION: Routine annual mammography screening. 1 year F/U This examination should not preclude the clinical evaluation of a suspicious palpable abnormality. This patient's information was entered into a reminder system with a target due date for their next mammogram. Dictated By: Rachael Cramer MD Signed By: <Electronically signed by Rachael Cramer MD in OV> 02/19/24 1254 DD/ 1125 TD/TT: Furn[employer]: Procedure Note Donotuseinterpreter, Image - 02/19/2024 [facility] [address] [place] [address] Mammography Report Signed Patient: Celeste FrederickMR#: [id number] : 1965Acct:[id number] Age/Sex: 58 / FADM Date: 01/24/24 Loc: MISAEL Attending Dr: Medhat Mcgowan MD Ordering Physician: Medhat Ambrosio ults: 2Benign Findings Date of Service: 01/24/24Follow Up: 1 Year From Orig ina Mammogram Procedure(s): MM tomosynthesis screening BI Accession Number(s): [id number] cc: Medhat Ambrosio MD EXAMINATION: MM SCREENING DIGITAL BREAST TOMOSYNTHESIS, BILATERAL CLINICAL INFORMATION: Screening. Asymptomatic. The patient has a history of bilateral mastopexy. COMPARISON: Mammography: This study is compared with prior exams dating back to 2019. TECHNIQUE: Digital breast tomosynthesis is performed in both the craniocaudal and mediolateral oblique views along with computer-aided detection (CAD). Synthesized 2D images are generated from the tomosynthesis. FINDINGS: The breasts are almost entirely fatty (ACR BI-RADS breast composition Category a). There are no significant masses, abnormal calcifications, or other abnormalities. Postsurgical changes are present in each breast. MM/MM tomosynthesis screening BI IMPRESSION: No mammographic evidence of malignancy. ASSESSMENT: BI-RADS BI-RADS 2 - Benign Findings RECOMMENDATION: Routine annual mammography screening. 1 year F/U This examination should not preclude the clinical evaluation of a suspicious palpable abnormality. This patient's information was entered into a reminder system with a target due date for their next mammogram. Dictated By: Rachael Cramer MD Signed By: <Electronically signed by Rachael Cramer MD in OV> 02/19/24 1254 DD/ 1125 TD/TT: Furnace [employer]: Medhat Mcgowan MD IMG BI PROCEDURES Final Result * Hepatitis C Antibody with Reflex to HCV, RNA, Quantitative, Real-Time PCR (08/29/2023 10:44 AM EST) Hepatitis C Antibody Nonreactive Nonreactive [facility] Comment:Antibodies to HCV no t detected; does not exclude early acuteHCV infection. Blood Venous blood specimen / Unknown 08/29/2023 10:44 AM EST 08/29/2023 2:48 PM EST Medhat Mcgowan MD LAB BLOOD ORDERABL ES Final Result [facility] [address] [place] [phone] * HPV mRNA E6/E7 w/Reflex to HPV Genotypes 16, 18/45 (08/29/2023 10:17 AM EST) HPV nRNA E6/E7 Not Detected Not Detected [facility] Comment:Methodology: Transcr iption-Mediated AmplificationThis assay detects E6/E7 viral messenger RNA (mRNA) from 14high-risk HPV types (16,18,31,33,35,39,45,51,52,56,58,59,66,68).Cervical sources are required for HPV testing.If a vaginal source from a patient who has had atotal hysterectomy with removal of cervix wassubmitted, please contact the testing laboratoryfor alternative testing options.For additional information, please refer [email or web address](This link if provided for information/educational purposes only.)THIS TEST WAS PERFORMED AT:[employer] [place] [phone] ABBASI MD HPV mRNA E6/E7 [facility] HPV 16 RNA [facility] HPV 18/45 RNA [facility] 08/29/2023 10:1 7 AM EST 08/30/2023 11:15 AM EST us Debbie Crowell [facility] CYTOLOGY ORDERABLES F inal Result [facility] [address] [place] [phone] * Pap Smear (08/29/2023 10:17 AM EST) Swab Cervix uteri structure / Unknown 08/29/2023 10:17 AM EST 08/30/2023 11:15 AM EST Narrative [facility] - 09/04/2023 11:07 AM EST ----- ------- Name: Celeste Frederick Age/Sex: 58/F : 1965 Unit#: [id number] Attend Dr: Medhat Ambrosio MD Re08/29/23 Status: DEP [facility] Disch: ----- ------- SPEC : [id number] RECD: 08/30/23-1115 STATUS: MARINO SINGLETON NUM: [id number] STORM: 08/29/23-[address]: DEBBIE CROWELL [facility] ENTERED: 08/30/23-1147 SP TYPE: Pap Smr OTHR DR: ORDERED: Pap Smear Interpretation Satisfactory for evaluation. Mild inflammation. Negative for intraepithelial lesion or malignancy. HPV mRNA E6/E7: NOT DETECTED This assay detects E6/E7 viral messenger RNA (mRNA) from 14 high-risk HPV types (16, 18, 31, 33, 35, 39, 45, 51, 52, 56, 58, 59, 66, 68) HPV testing performed by [facility] [facility], [place], [place]. See reference laboratory portion of the EMR for entire report. Clinical Information LMP: Unknown date Previous PAP test: Unknown date/findings Material Received ThinPrep-Cervical ----- ------- Signed (signature on file) JOSE L Alexander (ASCP) 09/04/23 1107 ----- ------- END OF REPORT Debbie Crowell [facility] LAB CYTOLOGY ORDERABLES F inal Result [facility] [address] [place] [phone] * Cologuard?? colon cancer screening (08/05/2023 6:52 AM EST) Pathologist [facility] Cologuard Result Negative Negative 08/16/20 1:10 PM EST [facility] (CLIA #:[id number]) Comment: NEGATIVE TEST RESULT. A negative Cologuard result indicates a low likelihood that a colorectal cancer (CRC) or advanced adenoma (adenomatous polyps with more advanced pre-malignant features) is present. The chance that a person with a negative Cologuard test has a colorectal cancer is less than 1 in 1500 (negative predictive value >99.9%) or has an advanced adenoma is less than 5.3% (negative predictive value 94.7%). These data are based on a prospective cross-sectional study of 10,000 individuals at average risk for colorectal cancer who were screened with both Cologuard and colonoscopy. (Robert Seals. et al, N Engl J Med 2014;370(14):7804-3664) The normal value (reference range) for this assay is negative. COLOGUARD RE-SCREENING RECOMMENDATION: Periodic colorectal cancer screening is an important part of preventive healthcare for asymptomatic individuals at average risk for colorectal cancer. Following a negative Cologuard result, the [place] Cancer Society and U.S. Multi-Society Task Force screening guidelines recommend a Cologuard re-screening interval of 3 years. References: [place] [employer] Society Guideline for Colorectal Cancer Screening: https://www.cancer.org/cancer/agodm-rfwegd-sbjbgm/ukbuenjok-hxoxxmndi-emjjqyg/ac s-rec ommendations.html.; Zac SINHA, Tabby SUTTON, Cecelia GARCIA, Colorectal Cancer Screening: Recommendations for Physicians and Patients from the U.S. Multi-Society Task Force on Colorectal Cancer Screening , Am J Gastroenterology 2017; 112:3106-8206. TEST DESCRIPTION: Composite algorithmic analysis of stool DNA-biomarkers with hemoglobin immunoassay. Quantitative values of individual biomarkers are not reportable and are not associated with individual biomarker result reference ranges. Cologuard is intended for colorectal cancer screening of adults of either sex, 45 years or older, who are at average-risk for colorectal cancer (CRC). Cologuard has been approved for use by the U.S. FDA. The performance of Cologuard was established in a cross sectional study of average-risk adults aged 50-84. Cologuard performance in patients ages 45 to 49 years was estimated by sub-group analysis of near-age groups. Colonoscopies performed for a positive result may find as the most clinically significant lesion: colorectal cancer [4.0%], advanced adenoma (including sessile serrated polyps greater than or equal to 1cm diameter) [20%] or non- advanced adenoma [31%]; or no colorectal neoplasia [45%]. These estimates are derived from a prospective cross-sectional screening study of 10,000 individuals at average risk for colorectal cancer who were screened with both Cologuard and colonoscopy. (Robert Seals. et al, N Engl J Med 2014;370(14):2376-7110.) Cologuard may produce a false negative or false positive result (no colorectal cancer or precancerous polyp present at colonoscopy follow up). A negative Cologuard test result does not guarantee the absence of CRC or advanced adenoma (pre-cancer). The current Cologuard screening interval is every 3 years. ([place] Cancer Society and U.S. Multi-Society Task Force). Cologuard performance data in a 10,000 patient pivotal study using colonoscopy as the reference method can be accessed at the following location: www.Vee24/results. Additional description of the Cologuard test process, warnings and precautions can be found at www.Black Lotusrd.naaya. Stool specimen (specimen) 08/05/2023 6:52 AM EST 08/08/2023 8:14 PM EST Medhat Mcgowan MD LAB MOLECULAR DIAG NOSTICS ORDERABLES Final Result [facility] (CLIA #:[id number]) Savanna [place] [address], [place] [phone] from Last 3 Months or Most Recently Relevant to Health Maintenance [place] [address] C3 [facility] MEDICAID STAND ADULT Care Teams Interactive Developer Relationship Specialty Start Date End Date Medhat Ambrosio MD [address] [place] [phone] PCP - General Internal Medicine 07/26/23
--- OUTSIDE RECORDS SUMMARY | 2025-05-15 14:33 | XMS_ITS | Encounter Summary ---
Author Organization [employer] Address [address] [address] Care Team Providers Care Stunt Person Name Role Phone Medhat Ambrosio MD Primary Care Prov ider Reason for Visit * Reason Onset Date Comments PT1 12/26/2024 Encounter Details Date Type Department Care Team ([facility] st Contact Info) Description 12/26/2024 Telephone [facility] MEDICINE [address] [place] [address] Medhat Ambrosio MD [address] [place] [address] PT1 Social History Tobacco Use Types Packs/Day [...] with others, in a hotel, in a long-term, living outside on the street, on a [...] * Telephone Encounter - Sona Walters - 12/26/2024 12:03 PM EDT Patient calling requesting PT1 Home Address verified: Y/N: Yes Provider name or facility name: [address] [place] [address] Escort needed: Y/N: No Do you have a wheelchair: Y/N: No If yes- Manual or electric: N/A Visits: (1x monthly) documented in this encounter Plan of Treatment Not on file documented as of this encounter Visit Diagnoses Not on filedocumented in this encounter Additional Health Concerns Assessment Noted Time PHQ-9 Depression Total Score: 3 07/26/20 23 11:35 AM EST documented as of this encounter Care Teams Stunt Person Relationship Specialty Start Date End Date Medhat Ambrosio MD [address] [place] [address] PCP - General Internal Medicine 07/26/23 documented as of this encounter
--- OUTSIDE RECORDS SUMMARY | 2025-05-15 14:33 | XMS_ITS | Encounter Summary ---
Author Organization [employer] Address [address] [address] Care Team Providers Care Bottling Line Attendant Name Role Phone Medhat Ambrosio MD Primary Care Prov ider Reason for Visit * Reason Onset Date Comments pt1 01/09/2024 Encounter Details Date Type Department Care Team ([facility] st Contact Info) Description 01/09/2024 Telephone [facility] MEDICINE [address] [place] [address] Medhat Ambrosio MD [address] [place] [address] pt1 Social History Tobacco Use Types Packs/Day Years [...] is your housing situation today? I have k[place] quarles 07/26/[address] you [...] encounter Miscellaneous Notes * Telephone Encounter - Shy Dawkins - 01/09/2024 4:22 PM EDT PT-1 submitted for patient. They will receive a letter of approval or denial in the mail. * Telephone Encounter - Brionna Vizcaino - 01/09/2024 11:31 AM EDT Patient calling requesting PT1 Home Address verified: Y/N: Yes Provider name or facility name: [facility] Facility Address: [address] [place] [address] Escort needed: Y/N: No Do you have a wheelchair: Y/N: No If yes- Manual or electric: n/a Visits: January 23 documented in this encounter Plan of Treatment Not on file documented as of this encounter Visit Diagnoses Not on filedocumented in this encounter Additional Health Concerns Assessment Noted Time PHQ-9 Depression Total Score: 3 07/26/20 11:35 AM EST documented as of this encounter Care Teams Bottling Line Attendant Relationship Specialty Start Date End Date Medhat Ambrosio MD [address] [place] [address] PCP - General Internal Medicine 07/26/23 documented as of this encounter
--- OUTSIDE RECORDS SUMMARY | 2025-05-15 14:33 | XMS_ITS | Encounter Summary ---
Author Organization [employer] Address [address] [address] Care Team Providers Care Outside Sales Account Manager Name Role Phone Medhat Ambrosio MD Primary Care Prov ider Reason for Visit * Reason Onset Date Comments Medication Question 11/22/2024 Encounter Details Date Type Department Care Team ([facility] st Contact Info) Description 11/22/2024 Telephone [facility] MEDICINE [address] [place] [address] Medhat Ambrosio MD [address] [place] [address] Medication Question Social History Tobacco Use Types [...] her having ring worm. Contact pt at [phone] documented in this encounter Plan of Treatment Not on file documented as of this encounter Visit Diagnoses Not on filedocumented in this encounter Additional Health Concerns Assessment Noted Time PHQ-9 Depression Total Score: 3 07/26/20 23 11:35 AM EST documented as of this encounter Care Teams Outside Sales Account Manager Relationship Specialty Start Date End Date Medhat Ambrosio MD [address] [place] [phone] PCP - General Internal Medicine 07/26/23 documented as of this encounter
--- OUTSIDE RECORDS SUMMARY | 2025-05-15 14:33 | XMS_ITS | Encounter Summary ---
Author Organization [employer] Address [address] [address] Care Team Providers Care Break Up Worker Name Role Phone Medhat Ambrosio MD Primary Care Prov ider Reason for Visit * Reason Onset Date Comments PT1 02/08/2024 Encounter Details Date Type Department Care Team ([facility] st Contact Info) Description 02/08/[address] [facility] MEDICINE [address] [place] [address] Medhat Ambrosio MD [address] [place] [address] PT1 Social History Tobacco Use Types Packs/Day [...] encounter Miscellaneous Notes * Telephone Encounter - Brionna Vizcaino - 02/08/2024 9:10 AM EDT Patient calling requesting PT1 Home Address verified: Y/N: Yes Provider name or facility name: [facility] Facility Address: [address] [place] [address] [address], [place] [address] Escort needed: Y/N: No Do you have a wheelchair: Y/N: No If yes- Manual or electric: n/a Visits: 2 a month documented in this encounter Plan of Treatment Not on file documented as of this encounter Visit Diagnoses Not on filedocumented in this encounter Additional Health Concerns Assessment Noted Time PHQ-9 Depression Total Score: 3 07/26/20 23 11:35 AM EST documented as of this encounter Care Teams Break Up Worker Relationship Specialty Start Date End Date Medhat Ambrosio MD [address] [place] [phone] PCP - General Internal Medicine 07/26/23 documented as of this encounter
--- OUTSIDE RECORDS SUMMARY | 2025-05-15 14:33 | XMS_ITS | Encounter Summary ---
Author Organization [employer] Address [address] [address] Care Team Providers Care Lieutenant Shift Supervisor Name Role Phone Medhat Ambrosio MD Primary Care Prov ider Reason for Visit * Reason Onset Date Comments Referral 07/12/2024 Encounter Details Date Type Department Care Team ([facility] st Contact Info) Description 07/12/2024 Telephone [facility] MEDICINE [address] [place] [address] Medhat Ambrosio MD [address] [place] [address] Referral Social History Tobacco Use Types Packs/Day Years [...] * Telephone Encounter - Shy Dawkins - 07/12/2024 4:23 PM EST PT-1 submitted for patient. They will receive a letter of approval or denial in the mail. * Telephone Encounter - Christal Dawkins - 07/12/2024 12:56 PM EST Patient calling requesting PT1 Home Address verified: Y/N: Yes Provider name or facility name: [facility] P[facility]ta needed: Y/N: No Do you have a wheelchair: Y/N: No If yes- Manual or electric: Visits: (3 xmonthly, ) documented in this encounter Plan of Treatment Not on file documented as of this encounter Visit Diagnoses Not on filedocumented in this encounter Additional Health Concerns Assessment Noted Time PHQ-9 Depression Total Score: 3 07/26/20 11:35 AM EST documented as of this encounter Care Teams Lieutenant Shift Supervisor Relationship Specialty Start Date End Date Medhat Ambrosio MD [address] [place] [address] PCP - General Internal Medicine 07/26/23 documented as of this encounter
--- OUTSIDE RECORDS SUMMARY | 2025-05-15 14:33 | XMS_ITS | Encounter Summary ---
Author Organization [employer] Address [address] [place] [address] Care Team Providers Care Legal Billing Coordinator Name Role Phone Medhat Ambrosio MD Primary Care Prov ider Reason for Visit * Reason Onset Date Comments PT-1 03/06/2025 Encounter Details Date Type Department Care Team ([facility] st Contact Info) Description 03/06/2025 Telephone [facility] MEDICINE [address] [place] [address] Medhat Ambrosio MD [address] [place] [address] PT-1 Social History Tobacco Use Types Packs/Day Years [...] with others, in a hotel, in a correction, living outside on the street, on a [...] encounter Miscellaneous Notes * Telephone Encounter - Marco A Valdovinos - 03/06/2025 12:23 PM EDT Patient calling requesting PT1 stating she would like to increase the amount of visits. Home Address verified: Y/N: Yes Provider name or facility name: [facility] Facility Address: [address] [place] [address] Escort needed: Y/N: No Do you have a wheelchair: Y/N: No If yes- Manual or electric: n/a Visits: three times month documented in this encounter Plan of Treatment Not on file documented as of this encounter Visit Diagnoses Not on filedocumented in this encounter Additional Health Concerns Assessment Noted Time PHQ-9 Depression Total Score: 3 07/26/20 23 11:35 AM EST documented as of this encounter Care Teams Legal Billing Coordinator Relationship Specialty Start Date End Date Medhat Ambrosio MD [address] [place] [phone] PCP - General Internal Medicine 07/26/23 documented as of this encounter
--- OUTSIDE RECORDS SUMMARY | 2025-05-15 14:33 | XMS_ITS | Encounter Summary ---
Author Organization [employer] Address [address] [place] [address] Care Team Providers Care Education Instructor Name Role Phone Medhat Ambrosio MD Primary Care Prov ider Reason for Visit * Reason Onset Date Comments PT1 09/04/2024 Encounter Details Date Type Department Care Team ([facility] st Contact Info) Description 09/04/2024 Telephone [facility] [address] [place] [address] Medhat Ambrosio MD [address] [place] [address] PT1 Social History Tobacco Use Types Packs/Day [...] got money to buy more: Sometimes True 12/05/ 2024 Within the past 12 months,th e food [...] encounter Miscellaneous Notes * Telephone Encounter - Brianna Campos - 09/04/2024 10:47 AM EST Patient calling requesting PT1 Home Address verified: Y/N: Yes Provider name or facility name: [facility] Facility Address: [address] [place] [address] Escort needed: Y/N: No Do you have a wheelchair: Y/N: No If yes- Manual or electric: n/a Visits: 2x a month 12 month documented in this encounter Plan of Treatment Not on file documented as of this encounter Visit Diagnoses Not on filedocumented in this encounter Additional Health Concerns Assessment Noted Time PHQ-9 Depression Total Score: 3 07/26/20 23 11:35 AM EST documented as of this encounter Care Teams Education Instructor Relationship Specialty Start Date End Date Medhat Ambrosio MD [address] [place] [phone] PCP - General Internal Medicine 07/26/23 documented as of this encounter
--- OUTSIDE RECORDS SUMMARY | 2025-05-15 14:34 | XMS_ITS | Encounter Summary ---
Author Organization [employer] Address [address] [place] [address] Care Team Providers Care Cement Block Maker Name Role Phone Medhat Ambrosio MD Primary Care Prov ider Reason for Visit * Reason Onset Date Comments New Patient 05/30/2023 Encounter Details Date Type Department Care Team ([facility] st Contact Info) Description 05/30/2023 Telephone [facility] MEDICINE [address] [place] [address] Steve Hay MD [address] [place] [address] New Patient Social History Tobacco Use Types Packs/Day Years Used Date Smoking Tobacco: Never Assessed Comments Unknown Sex and Gender Information Value Date Recorded Sex Assigned at Female 07/10/2023 8:41 AM EST Legal Sex Female 8:41 AM EST Gender Identity Female 07/10/2023 8:41 AM EST Sexual Orientation Straight 07/26/2023 10 :54 AM EST documented as of this encounter Miscellaneous Notes * Telephone Encounter - Irene Tellez - 05/30/2023 5:50 PM EDT Pt has been transfer over to wait list for SILK [employer]. EFFECTIVE SINCE 05/26/2023 documented in this encounter Plan of Treatment Not on file documented as of this encounter Visit Diagnoses Not on filedocumented in this encounter Care Teams Cement Block Maker Relationship Specialty Start Date End Date Medhat Ambrosio MD [address] [place] [phone] PCP - General Internal Medicine 07/26/23 documented as of this encounter
--- OUTSIDE RECORDS SUMMARY | 2025-05-15 14:34 | XMS_ITS | Encounter Summary ---
Author Organization [employer] Address [address] [place] [address] Care Team Providers Care Consumer Affairs Director Name Role Phone Medhat Ambrosio MD Primary Care Prov ider Reason for Visit * Reason Onset Date Comments PT-1 04/02/2025 Encounter Details Date Type Department Care Team ([facility] st Contact Info) Description 04/02/2025 Telephone [facility] MEDICINE [address] [place] [address] Medhat Ambrosio MD [address] [place] [address] PT-1 Social History Tobacco Use Types Packs/Day Years Used Date Smoking Tobacco: Never Passive Smoke Exposure: Never Smokeless Tobacco: Never Alcohol Use Standard [...] with others, in a hotel, in a fdc, living outside on the street, on a [...] Telephone Encounter - Marco A Valdovinos - 04/02/2025 3:27 PM EDT Patient calling requesting PT1 Home Address verified: Y/N: Yes Provider name or facility name: [facility]: [facility] [place] Facility Address: [address] [place] [address] Tristan Famyolupe FELIX. Escort needed: Y/N: No Do you have a wheelchair: Y/N: No If yes- Manual or electric: N/A Visits: Once a month documented in this encounter Plan of Treatment Not on file documented as of this encounter Visit Diagnoses Not on filedocumented in this encounter Additional Health Concerns Assessment Noted Time PHQ-9 Depression Total Score: 4 03/10/20 25 9:04 AM EDT documented as of this encounter Care Teams Consumer Affairs Director Relationship Specialty Start Date End Date RodriguezMedhat Loera MD [address] [place] [address] PCP - General Internal Medicine 07/26/23 documented as of this encounter
== END 2025-05-15 12:23 | disposition home or self-care (01) ==
LOC: HO.MAMMO 12:22
PROVIDERS: PCP Internal Medicine; Visit Provider Internal Medicine
DX: Z12.31 Encounter for screening mammogram for malignant neoplasm of breast (principal)
CPT/HCPCS: 77063; 77067

== ENCOUNTER → 2025-05-15 12:30 | Outpatient (BNV) | payer MEDICAID, SELFPAY | PROVIDERS: PCP Internal Medicine; Visit Provider Internal Medicine | DX: Z12.31 Encounter for screening mammogram for malignant neoplasm of breast (principal) | CPT/HCPCS: 77063; 77067 ==